=== PATIENT | female | born 1945 | race Caucasian/White ===

== ENCOUNTER 2019-01-29 11:39 | Emergency (ER) | payer MEDICARE ==
[2019-01-29 12:31] LABS: HEMATOCRIT 34.3 % (35.0-47.0); HEMOGLOBIN 10.6 gm/dl (11.6-16.0); MEAN CELL VOLUME 77.3 fl (81-97); MEAN CORPUSCULAR HGB CONC 30.9 g/dl (32-36); MEAN PLATELET VOLUME 11.9 fl (7.4-10.4); PLATELET COUNT 98 K/uL (130-400); RED BLOOD COUNT 4.44 M/uL (3.80-5.40); RED CELL DISTRIBUTION WIDTH 17.3 % (11.5-14.5)
[2019-01-29 12:38] LABS: MEAN CORPUSCULAR HEMOGLOBIN 23.8 pg (27-33)
[2019-01-29 12:39] LABS: BLOOD UREA NITROGEN 11 mg/dL (8-23); CREATININE 0.7 mg/dL (0.5-0.9); EST GLOMERULAR FILTRATION RATE > 60 mL/min; WHITE BLOOD COUNT W/O DIFF 0.1 K/uL (4.2-12.2)
[2019-01-29 12:40] LABS: TOTAL PROTEIN 5.7 g/dL (6.6-8.7)
[2019-01-29 12:42] LABS: GLUCOSE,RANDOM 137 mg/dL (74-109)
[2019-01-29 12:44] LABS: ALT/SGPT 16 U/L (<33); AST/SGOT 12 U/L (10.0-35.0)
[2019-01-29 12:45] LABS: ALB/GLOB RATIO 1.4 (1.1-1.8); ALBUMIN 3.3 g/dL (4.0-5.0); ALKALINE PHOSPHATASE 67 U/L (35-104)
[2019-01-29] MEDS ORDERED: ONDANSETRON HCL IV 4 MG/2 ML VIAL IVP ONE (13:36)
[2019-01-29] MEDS ORDERED: MORPHINE SULFATE 10 MG/ML VIAL IVP ONE ×2 (13:36→16:34)
[2019-01-29 13:55] LABS: PLATELET ESTIMATE DECREASED (NORMAL); TEAR DROP CELLS 1+
[2019-01-29 13:56] LABS: POIKILOCYTOSIS 1+
--- NOTE | 2019-01-29 14:10 | Emergency Department Record ---
History of Present Illness - General Chief Complaint: Abdominal Pain Stated Complaint: ABD PAIN Time Seen by Provider: 01/29/19 11:46 Source: Patient, Family Mode of Arrival: EMS Limitations: No limitations - History of Present Illness Initial Comments: pt was recently dxd w nonhodgkins lymphoma in [place]. she was hospitalized for a week and has very little recollection of it. she was then flown to [facility] where she was worked up and started on chemo. she just got out of the 2 days ago. she comes in today via ems for increased ap. no n/v/c/d. MD Complaint: Abdominal pain Onset/Timin -: Month(s) Location: Diffuse Radiation: None Severity scale (1-10): 6 Quality: Dull Consistency: Constant, Intermittent Improves With: Nothing Worsens With: Nothing Associated Symptoms: Denies other symptoms - Related Data Patient : No Hx Age of Menopause: 52 Home Medications Medication Instructions Recorded Confirmed Last Taken Acyclovir 400 mg PO BID 01/29/19 01/29/19 Unknown Febuxostat [Uloric] 40 mg PO DAILY 01/29/19 01/29/19 Unknown Allergies Allergy/AdvReac Type Severity Reaction Status Date / Time No Known Drug Allergies Allergy Unverified 09/18/18 10:15 Travel Screening - Travel/Exposure Within Last 30 Days Have you traveled within the last 30 days?: No Review of Systems Reviewed: No additional complaints except as noted below Constitutional: Reports: As per HPI. Denies: Chills, Fever, Malaise, Night sweats, Weakness, Weight change Eyes: Reports: As per HPI. Denies: Eye discharge, Eye pain, Photophobia, Vision change ENT: Reports: As per HPI. Denies: Congestion, Dental pain, Ear pain, Epistaxis , Hearing loss, Throat pain Respiratory: Reports: As per HPI. Denies: Cough, Dyspnea, Hemoptysis, Stridor, Wheezes Cardiovascular: Reports: As per HPI. Denies: Arrhythmia, Chest pain, Dyspnea on exertion, Edema, Murmurs, Orthopnea, Palpitations, Paroxysmal nocturnal dyspnea, Rheumatic Fever, Syncope Endocrine: Reports: As per HPI. Denies: Fatigue, Heat or cold intolerance, Polydipsia, Polyuria Gastrointestinal: Reports: As per HPI, Abdominal pain. Denies: Constipation, Diarrhea, Hematemesis, Hematochezia, Melena, Nausea, Vomiting Genitourinary: Reports: As per HPI. Denies: Abnormal menses, Discharge, Dyspareunia, Dysuria, Frequency, Hematuria, Incontinence, Retention, Urgency Musculoskeletal: Reports: As per HPI. Denies: Arthralgia, Back pain, Gout, Joint swelling, Myalgia, Neck pain Skin: Reports: As per HPI. Denies: Bruising, Change in color, Change in hair/ nails, Lesions, Pruritus, Rash Neurological: Reports: As per HPI. Denies: Abnormal gait, Confusion, Headache, Numbness, Paresthesias, Seizure, Tingling, Tremors, Vertigo, Weakness Psychiatric: Reports: As per HPI. Denies: Anxiety, Auditory hallucinations, Depression, Homicidal thoughts, Suicidal thoughts, Visual hallucinations Hematological/Lymphatic: Reports: As per HPI. Denies: Anemia, Blood Clots, Easy bleeding, Easy bruising, Swollen glands Past Medical History - SOCIAL HISTORY Smoking Status: Former smoker - RESPIRATORY Hx Respiratory Disorders: No - CARDIOVASCULAR Hx Cardio Disorders: Yes Hx Hypertension: Yes - NEURO Hx Neuro Disorders: No - GI Hx GI Disorders: Yes Hx Abdominal Pain: Yes (d/t certain foods) Hx of Polyps: Yes - Hx Genitourinary Disorders: No - ENDOCRINE Hx Endocrine Disorders: No - MUSCULOSKELETAL Hx Musculoskeletal Disorders: No - PSYCH Hx Psych Problems: No - HEMATOLOGY/ONCOLOGY Hx Hematology/Oncology Disorders: Yes Hx Cancer: Yes Hx Chemotherapy: Yes Family Medical History Any Significant Family History?: Yes Hx Cancer: Mother, Grandparents *Cancer Comment: kidney Hx Heart Disease: Father Hx Kidney Disease: Mother *Kidney Comment: kidney cancer Physical Exam - General General Appearance: Alert, Oriented x3, Cooperative, Mild distress - Head Head exam: Normal inspection - Eye Eye exam: Normal appearance, PERRL, EOMI Pupils: Normal accommodation - ENT ENT exam: Normal exam, Mucous membranes moist, Normal external ear exam, Normal orophraynx Ear exam: Normal external inspection. negative: External canal tenderness Nasal Exam: Normal inspection. negative: Discharge, Sinus tenderness Mouth exam: Normal external inspection, Tongue normal Teeth exam: Normal inspection. negative: Dental caries Throat exam: Normal inspection. negative: Tonsillar erythema, Tonsillar exudate - Neck Neck exam: Normal inspection, Full ROM. negative: Tenderness - Respiratory Respiratory exam: Normal lung sounds bilaterally. negative: Respiratory distress - Cardiovascular Cardiovascular Exam: Regular rate, Normal rhythm, Normal heart sounds - GI/Abdominal GI/Abdominal exam: Soft, Normal bowel sounds. negative: Tenderness - Rectal Rectal exam: Deferred - exam: Deferred - Extremities Extremities exam: Normal inspection, Full ROM, Normal capillary refill. negative: Tenderness - Back Back exam: Reports: Normal inspection, Full ROM. Denies: Muscle spasm, Rash noted, Tenderness - Neurological Neurological exam: Alert, CN II-XII intact, Normal gait, Oriented X3 - Psychiatric Psychiatric exam: Normal affect, Normal mood - Skin Skin exam: Dry, Intact, Normal color, Warm Course Vital Signs 01/29/19 01/29/19 11:41 13:50 Temperature 99.2 F Pulse Rate 98 H Pulse Rate [ 93 H Pulse Ox Probe] Respiratory 18 16 Rate Blood Pressure 141/74 Blood Pressure 149/73 [Left Arm] Pulse Ox 97 96 Medical Decision Making - Lab Data Result diagrams: 01/29/19 12:20 01/29/19 12:20 Lab Results 01/29/19 01/29/19 01/29/19 Range/Units 12:20 12:20 12:20 WBC 0.1 L* (4.2-12.2) K/uL RBC 4.44 (3.80-5.40) M/uL Hgb 10.6 L (11.6-16.0) gm/dl Hct 34.3 L (35.0-47.0) % MCV 77.3 L (81-97) fl MCH 23.8 L (27-33) pg MCHC 30.9 L (32-36) g/dl RDW 17.3 H (11.5-14.5) % Plt Count 98 L (130-400) K/uL MPV 11.9 H (7.4-10.4) fl Neutrophils % 10.0 L (47-80) % Eosinophils % Not Reportable Basophils % Not Reportable Lymphocytes 20.0 (16-45) % Monocytes 40.0 H (0-9) % Platelet Estimate Decreased (NORMAL) Poikilocytosis 1+ Tear Drop Cells 1+ Eosinophil Count 30.0 H (0-6) % Sodium 134 L (136-145) mmol/L Potassium 4.2 (3.4-4.5) mmol/L Chloride 97 L (98-107) mmol/L Carbon Dioxide 28.0 (22-29) mmol/L Anion Gap 9.0 (7-16) BUN 11 (8-23) mg/dL Creatinine 0.7 (0.5-0.9) mg/dL Estimated GFR > 60 mL/min Random Glucose 137 H (74-109) mg/dL Lactic Acid Cancelled 1.3 Calcium 8.8 (8.8-10.2) mg/dL Total Bilirubin 1.50 H (0.2-1.0) mg/dL AST 12 (10.0-35.0) U/L ALT 16 (<33) U/L Alkaline Phosphatase 67 (35-104) U/L Total Protein 5.7 L (6.6-8.7) g/dL Albumin 3.3 L (4.0-5.0) g/dL Globulin 2.4 (1.4-4.8) gm/dL Albumin/Globulin Ratio 1.4 (1.1-1.8) Disposition Disposition: Transfer Clinical Impression: SBO (small bowel obstruction) Disposition: Acute Care Hospital Transfer Transfer To: [facility] Reason For Transfer: needs oncology Accepting Physician: tyesha Ramos and dr rasmussen Time Discussed w/Accepting Physician: 14:58 Forms: Patient Portal Access Quality - Quality Measures Quality Measures: N/A - Blood Pressure Screening Does Patient Have Any of the Following: No Blood Pressure Classification: Hypertensive Reading Systolic Measurement: 141 Diastolic Measurement: 74 Screening for High Blood Pressure: < First Hypertensive BP, F/U Documented > [ [id number]] First Hypertensive Follow-up Interventions: Follow-up with rescreen GT 1 day and LT 4 weeks.
--- NOTE | 2019-01-31 16:34 | CT SCAN REPORT ---
EXAM: CT SCAN ABDOMEN/PELVIS WO CONTRAST HISTORY: LEFT ABDOMINAL PAIN. ABDOMINAL DISTENTION. UNDERGOING CHEMOTHERAPY FOR NON-HODGKIN'S LYMPHOMA. PRIOR APPENDECTOMY. TECHNIQUE: Helical CT examination of the abdomen and pelvis is performed without oral or intravenous contrast administration. Lack of oral and IV contrast utilization limits evaluation of the bowel and solid viscera respectively. COMPARISON: No recent prior CT examination of the abdomen or pelvis. CT angiogram of the chest dated 09/03/2015. FINDINGS: There are small dependent pleural effusions, left larger than right. There is mild airspace disease in the adjacent dependent lung bases consistent with atelectasis or less likely infiltrate. The heart is not enlarged. There is mild atherosclerotic calcification of the left anterior descending artery. No definite focal abnormality is demonstrated within the liver, spleen, pancreas , nor adrenal glands. There is mass-like enlargement of the left kidney associated with loss of the renal sinus fat and with mild perinephric fat stranding. It measures 14.6 cm craniocaudad by 10 cm AP by 8.1 cm transverse. Underlying caliectasis, particularly in the upper pole would be difficult to exclude. Additionally, there is soft tissue density prominence along the left periaortic region extending from the level of the left renal vasculature inferiorly for a distance of approximately 8 cm. This measures approximately 3.7 cm AP by 2.7 cm transverse and is suspicious for adenopathy. These findings are consistent with the stated history of non-Hodgkin's lymphoma. The right kidney is normal in appearance. The gallbladder is unremarkable and no biliary ductal dilatation is seen. There is a small amount of fluid along the anterior superior margin of the right liver lobe. There is a small amount of fluid in the dependent pelvis, asymmetric to the right. The uterus is likely positioned right of midline and retroflexed. There are multiple gas and fluid distended, dilated mid to distal small bowel loops to the level of the central pelvis where there is a small bowel segment appearing to have wall thickening and with moderate adjacent fat stranding. These findings are consistent with partial small bowel obstruction. The etiology may all relate to an inflammatory process though neoplasm is also possible. No definite extraluminal air in this region. There is a tiny fat-filled umbilical hernia. No lytic or blastic bone lesion. There is grade 1 anterolisthesis of L4 on L5 secondary to facet arthropathy. Facet degenerative changes at the lower lumbar levels are advanced. IMPRESSION: 1. SMALL DEPENDENT PLEURAL EFFUSIONS, LEFT LARGER THAN RIGHT, ASSOCIATED WITH MILD BIBASILAR ATELECTASIS. 2. MASS-LIKE ENLARGEMENT OF THE ENTIRE LEFT KIDNEY WITH LOSS OF NORMAL RENAL SINUS FAT AND WITH ASSOCIATED LEFT PERIAORTIC ADENOPATHY CONSISTENT WITH STATED HISTORY OF NON-HODGKIN'S LYMPHOMA. COMPARISON TO PRIOR EXAMINATIONS WOULD BE OF BENEFIT. 3. SMALL VOLUME OF ASCITES. 4. AT LEAST PARTIAL DISTAL SMALL BOWEL OBSTRUCTION WITH A SEGMENT OF SMALL BOWEL WALL THICKENING IN THE CENTRAL PELVIS ASSOCIATED WITH MODERATE ADJACENT FAT STRANDING CONSISTENT WITH INFLAMMATION OR INFILTRATIVE NEOPLASM. NO DEFINITE EXTRALUMINAL AIR. JOB NUMBER: [id number] MTDD
== END 2019-01-29 16:40 | disposition short-term general hospital (02) ==
LOC: ER 11:39
DX: K56.609 Unspecified intestinal obstruction, unspecified as to partial versus complete obstruction (principal); C85.93 Non-Hodgkin lymphoma, unspecified, intra-abdominal lymph nodes; I10 Essential (primary) hypertension; Z87.891 Personal history of nicotine dependence
CPT/HCPCS: 74176; 80053; 83605; 85027; 96374; 96375; 96376; 99285; J2270; J2405